=== PATIENT | female | born 1960 | race Caucasian/White ===

== ENCOUNTER 2021-04-07 10:04 | Day surgery (SDC) | payer BC ==
[~2021-04-07] VITALS: Ht 154.9 cm; Wt 90.9 kg
[~2021-04-07 10:04] MED LIST: ACET1TAB33 PO; ACETAMINOPHEN 500 MG TABLET PO PRN; CHOL100013 PO; FLUT9.9S NS; HYDR200T71 PO; HYDROmorphone 2 MG/ML INJ. IVP PRN; IV RINGERS,LACTATED 1000ML 1,000 ML IV SCH; MORPHINE SULFATE 2 MG/ML INJ. IVP PRN; NAPR-514 PO; OMEP20CA16 PO; OMEP40CA7 PO; ONDA4TAB12 PO; PAPA1TAB8 PO; POLY17PO29 PO; PROCHLORPERAZINE 10 MG/2 ML VIAL. IVP PRN; fentaNYL PF VIAL 100 MCG/2 ML VIAL IVP PRN
[2021-04-07 10:42] VITALS: BP 137/64
[2021-04-07] MEDS ORDERED: PROPOFOL 10 MG/ML (20ML) VIAL. IV ONE (10:53)
[2021-04-07] MEDS ORDERED: LIDOCAINE 2% PF 5 ML VIAL. ONE (10:54)
[2021-04-07] MEDS ORDERED: DEXAMETHASONE SOD PHOS 4 MG/ML VIAL ONE (10:54)
[2021-04-07] MEDS ORDERED: HYDROmorphone 2 MG/ML INJ. ONE (10:54)
[2021-04-07] MEDS ORDERED: KETOROLAC 30 MG/ML VIAL. ONE (10:54)
[2021-04-07] MEDS ORDERED: ONDANSETRON PF 4 MG/2 ML VIAL. ONE (10:54)
[2021-04-07] MEDS ORDERED: BUPIVACAINE-EPI 0.25%-1:200000 MPF 30 ML VIAL. ONE (10:54)
[2021-04-07] MEDS ORDERED: NEOSTIGMINE METHYLSULFATE 5 MG/5 ML SYRINGE. ONE (10:55)
[2021-04-07] MEDS ORDERED: GLYCOPYRROLATE 1 MG/5 ML VIAL. ONE (10:55)
[2021-04-07] MEDS ORDERED: ROCURONIUM 50 MG/5 ML VIAL. ONE (10:55)
[2021-04-07] MEDS ORDERED: FAMOTIDINE 20 MG/2 ML VIAL ONE (10:59)
[2021-04-07] MEDS ORDERED: LABETALOL 20 MG/4 ML DISP.SYRIN. IVP ONE (11:35)
--- NOTE | 2021-04-07 12:24 | PDOC4 ---
Operative Note Operative Note Date: April 072020 at 12:22 PM Preoperative diagnosis: Chronic cholecystitis cholelithiasis Postoperative diagnosis: Same Procedure: Laparoscopic cholecystectomy fluorescein cholangiography Surgeon: Omer Specimen: Gallbladder Detacher: None Dictation: Patient is a 60-year-old female has had right upper quadrant ab dominal pain ultrasound showing gallstones. The procedure of laparoscopic cholecystectomy was explained to the patient detail risk-benefit were also discussed including bleeding infection injury to intra-abdominal contents possible necessitating further open operations alternatives this procedure also discussed with the patient who seemed to understand and gave a verbal written consent to have procedure performed. Patient was taken to the operating room placed in the supine position general anesthesia was initiated once patient was sleeping intubated her abdomen was prepped and draped usual sterile fashion using ChloraPrep. An area just below the umbilicus was injected quarter percent Marcaine with epinephrine incision was made 11 blade scalpel and a varies needle was placed within the abdomen creating pneumoperitoneum once this was complete the millimeter port was placed in a 5 mm camera is placed within the abdomen which was inspected no other abnormalities were noted. 5 mm port was placed in the epigastrium a 5 mm port was placed in the right midabdomen a 5 mm port was placed in the right lateral abdomen all under direct visualization. The dome of the gallbladder is grasped retracted cephalad the infundibulum gallbladder is grasped tract laterally exposing the triangle adherent tissues of the triangle were quite edematous were taken down with blunt dissection exposing the cystic duct and cystic artery fluorescing cholangiography was performed which showed good dye within the cystic duct down to the common bile duct. The cystic duct was doubly clipped and transected the cystic artery was clipped and transected the gallbladder was taken off the liver with hook electrocautery placed in Endo Catch bag removed and the umbilicus right upper quadrant is irrigated and suctioned dry the gallbladder fossa was somewhat oozing so Raul was placed in the gallbladder fossa the pneumoperitoneum was reduced all ports were removed the fascial defect at the umbilicus was closed with a [id number] 0 Vicryl suture and the skin was reapproximated all port sites for subcuticular Monocryl Mastisol Steri-Strips and island dressings were applied. Patient was awakened extubated operating room taken recovery in stable condition all sponge instrument needle counts listed as correct estimated blood loss 30 mL DYLAN HURST MD Apr 07, 2021 12:24
[2021-04-07] MEDS ORDERED: OXYC-325 PO (12:26)
--- NOTE | 2021-04-07 12:28 | DISCH ---
DISCHARGE INSTRUCTIONS Condition on Discharge Condition on Discharge: Stable Activity After Discharge Activity Instructions for Disc: Avoid exertion Other activity instructions: No lifting more than 20 pounds for 2 weeks Diet after Discharge Diet after Discharge: Low Fat Wound Incision Care Other wound/incision instructi: Katia shower in 24-hour Contacting the after DC Call your doctor for: If your condition worsens Follow-Up Follow up with: Dr. Hurst in 2 weeks DYLAN HURST MD Apr 07, 2021 12:28
[2021-04-07] MEDS ORDERED: fentaNYL PF VIAL 100 MCG/2 ML VIAL ONE ×2 (13:10→14:07)
[2021-04-07] MEDS: fentaNYL PF VIAL 100 MCG/2 ML VIAL IVP PRN ×3 (13:12→14:10)
[2021-04-07] MEDS ORDERED: oxyCODONE/APAP 5/325 1 TAB TABLET PO ONE (13:15)
[2021-04-07] MEDS ORDERED: SEVOFLURANE 31 TO 60 MINUTES. IH ONE (14:26)
[2021-04-07 15:00] VITALS: BP 140/74
--- NOTE | 2021-04-09 19:07 | PATHOLOGY ---
[facility] Accession Number: [id number] . 01 Material submitted: . gallbladder - GALLBLADDER . 01 Clinical history: . CHOLECYSTITIS . 02 Diagnosis: Gallbladder, excision: - Acute cholecystitis, arising in a background of chronic cholecystitis with prominent eosinophils. - Lithiasis. - Negative for malignancy. (MLK:pit; 04/08/2021) QTP 04/09/2021 1857 Local . 02 Electronically signed: . Ana Bolton MD, Pathologist NPI- [id number] . 01 Gross description: . Fixative: Formalin Labeled: Gallbladder Specimen received: Previously disrupted gallbladder Dimensions: 9.5 x 4.2 x 3.6 cm Serosa: Red-brown to pink-sutton and roughened Lymph node: None identified Mucosa: Red-sutton, velvety 2 roughened Average wall thickness: 0.4 cm Calculi: Multiple present displaying a bright yellow, multifaceted appearance and ranging in size from 0.1-0.9 cm with a single calculi lodged within the cystic duct measuring 2.0 cm Abnormalities: None identified . A1- Medical Record Coder body, fundus, and the cystic duct margin. ([facility]; 04/07/2021) NRI/NRI 04/07/2021 2013 Local . 02 Pathologist provided ICD-10: K80.12 . 02 CPT . 905096 Specimen Comment: A courtesy copy of this report has been sent to [phone] Specimen Comment: Report sent to Performed at: 01 [facility] [address], [place], [place] [id number] MD Gordon Mejia MD Phone: [phone] Performed at: 02 [facility] [address] [place], [place] [id number] MD Michele Alexander MD Phone: [phone]
== END 2021-04-07 15:25 | disposition home or self-care (01) ==
LOC: SURG 10:04
PROVIDERS: ATTEND Surgery
DX: K80.12 Calculus of gallbladder with acute and chronic cholecystitis without obstruction (principal); K21.9 Gastro-esophageal reflux disease without esophagitis; M19.90 Unspecified osteoarthritis, unspecified site; F41.9 Anxiety disorder, unspecified; F32.9 Major depressive disorder, single episode, unspecified; Z79.899 Other long term (current) drug therapy; Z98.890 Other specified postprocedural states; Z88.6 Allergy status to analgesic agent
CPT/HCPCS: 47563; A4930; J0690; J1100; J1170; J1885; J2405; J2704; J2710; J3010; J3490; A4223; A4657